=== PATIENT | male | born 1985 | race Two or more races ===

== ENCOUNTER 2023-05-05 22:35 | Emergency (ER) | payer BC ==
[~2023-05-05] VITALS: Ht 175.3 cm; Wt 99.8 kg
== END 2023-05-06 01:10 | disposition home or self-care (01) ==
LOC: ER 22:36
DX: S01.82XA Laceration with foreign body of other part of head, initial encounter (principal); V09.9XXA Pedestrian injured in unspecified transport accident, initial encounter; Y93.89 Activity, other specified; Y92.89 Other specified places as the place of occurrence of the external cause